=== PATIENT | male | born 1955 | race Caucasian/White ===

== ENCOUNTER 2018-02-13 09:20 | Observation (INO) | payer BC ==
[~2018-02-13] VITALS: Ht 182.9 cm; Wt 78.5 kg
[~2018-02-13 09:20] MED LIST: ADULT LOW DOSE81 M1 PO; NEXIUM20 MG PO; ZESTRIL,PRINIVI20 MG PO
[2018-02-13 09:46] LABS: HEMATOCRIT 49.6 % (38.0-50.0); MCH 30.2 PG (29.0-34.0); MCHC 34.3 G/DL (30.0-36.0); MCV 88.3 FL (86-99); PLATELET COUNT 237 K/uL (156-360); RBC DIS.WIDTH-CV 12.8 % (11.8-14.6); RBC DIS.WIDTH-SD 41.4 % (39-53); RED BLOOD COUNT 5.62 M/uL (4.00-5.50); WHITE BLOOD COUNT 7.4 K/uL (4.1-10.2)
[2018-02-13 09:55] LABS: CHLORIDE 102 mEq/L (99-109); POTASSIUM 4.1 mEq/L (3.7-5.4); SODIUM 140 mEq/L (136-147)
[2018-02-13 09:57] LABS: GLUCOSE 131 mg/dL (70-99)
[2018-02-13 10:01] LABS: GFR ESTIMATE (CALCULATED) > 59 mL/min/ (58.99-99999)
[2018-02-13 10:02] LABS: UREA NITROGEN (BUN) 17 mg/dL (9-23)
[2018-02-13 10:08] LABS: TROP-I INTERPRETATION NEGATIVE; TROPONIN-I < 0.01 ng/mL (0.0-0.30)
[2018-02-13 11:24] LABS: APPEARANCE CLEAR ((CLEAR)); BILIRUBIN NEGATIVE; BLOOD NEGATIVE; COLOR YELLOW ((YELLOW)); GLUCOSE (STRIP) NEGATIVE; KETONES NEGATIVE; LEUKOCYTES NEGATIVE; NITRITE NEGATIVE; PROTEIN (STRIP) NEGATIVE; SPECIFIC GRAVITY 1.016 (1.000-1.030); UCUL ADDED? NO; UROBILINOGEN 0.2 MG/DL (0.2-1.0)
[2018-02-13] MEDS ORDERED: PRINZIDE 20-121 EACH PO (11:57)
[2018-02-13] MEDS ORDERED: NEXIUM40 MG PO (11:58)
[2018-02-13] MEDS ORDERED: CRESTOR5 MG PO (11:58)
[2018-02-13 16:33] LABS: TROP-I INTERPRETATION NEGATIVE; TROPONIN-I < 0.01 ng/mL (0.0-0.30)
[2018-02-13 19:54] VITALS: BP 134/94
[2018-02-13 23:19] LABS: TROP-I INTERPRETATION NEGATIVE; TROPONIN-I < 0.01 ng/mL (0.0-0.30)
[2018-02-13 23:27] VITALS: BP 105/65
[2018-02-14 04:00] VITALS: BP 105/67
[2018-02-14 08:40] VITALS: BP 135/80
[2018-02-14] MEDS ORDERED: LOPRESSOR25 MG PO (09:08)
[2018-02-14] MEDS ORDERED: PRAVASTATIN SOD40 MG PO (09:08)
[2018-02-14] MEDS ORDERED: LISINOPRIL20 MG PO (09:08)
[2018-02-14] MEDS ORDERED: XARELTO20 MG PO (09:11)
== END 2018-02-14 12:46 | disposition home or self-care (01) ==
LOC: EME 09:20 → EDOF 11:13 → 4EAST 11:13 → EDOF 11:13 → ENRESERV 11:14 → EDOF 11:24 → CANRESERV 11:27 → ENRESERV 11:27 → 4EAST 19:51 → ENPENDDIS 02-14 → 4EAST 02-14 12:46
PROVIDERS: Emergency Medicine; Internal Medicine
DX: I48.0 Paroxysmal atrial fibrillation (principal); R55 Syncope and collapse; I10 Essential (primary) hypertension; E78.5 Hyperlipidemia, unspecified; J01.90 Acute sinusitis, unspecified; Z87.891 Personal history of nicotine dependence; Z86.19 Personal history of other infectious and parasitic diseases
CPT/HCPCS: 70450; 71045; 80048; 81003; 84484; 85027; 93005; 93306; 93880; 99281; 99285; G0378; J1650; J2405; J7030